=== PATIENT | female | born 1930 | race Caucasian/White ===

== ENCOUNTER 2018-09-29 13:52 | Emergency (ER) | payer OTHER, MEDICAID ==
[~2018-09-29] VITALS: Ht 160 cm; Wt 66.0 kg
[2018-09-29] MEDS ORDERED: ACETAMINOPHEN 650MG/20.3ML UDC PO ONE (16:45)
[2018-09-29] MEDS ORDERED: IBUPROFEN 400MG TABLET PO ONE (16:45)
[2018-09-29 17:45] VITALS: BP 130/72
== END 2018-09-29 17:55 | disposition home or self-care (01) ==
LOC: ER 13:52
DX: S70.02XA Contusion of left hip, initial encounter (principal); M25.572 Pain in left ankle and joints of left foot; M25.532 Pain in left wrist; E78.00 Pure hypercholesterolemia, unspecified; I10 Essential (primary) hypertension; Z90.49 Acquired absence of other specified parts of digestive tract; V03.99XA Pedestrian with other conveyance injured in collision with car, pick-up truck or van, unspecified whether traffic or nontraffic accident, initial encounter; Y93.01 Activity, walking, marching and hiking; Y92.481 Parking lot as the place of occurrence of the external cause; Y99.8 Other external cause status
CPT/HCPCS: 72170; 73030; 73110; 73610; 99283

== ENCOUNTER 2019-08-03 12:24 | Inpatient (IN) | payer OTHER, MEDICAID ==
[~2019-08-03] VITALS: Ht 144.8 cm; Wt 44.9 kg
[2019-08-03] MEDS ORDERED: ONDANSETRON HCL 4MG/2ML INJ IV STA (13:53)
[2019-08-03 14:17] LABS: BASOPHILS % 1.2 % (0.0-2.0); EOSINOPHILS % 1.8 % (0.0-5.0); HEMATOCRIT. 45.7 % (36.0-48.0); HEMOGLOBIN. 15.4 g/dL (12.0-16.0); LYMPHOCYTES % 27.4 % (20.0-50.0); MEAN CORPUSCULAR VOLUME 89.3 fL (81.0-99.0); MEAN PLATELET VOLUME 8.7 fl (7.4-10.4); MONOCYTES % 7.7 % (2.0-8.0); NEUTROPHILS % 61.9 % (40.0-76.0); PLATELET 145 x1000/uL (130-400); RED BLOOD CELL COUNT 5.12 mill/uL (4.2-5.4)
[2019-08-03 14:23] LABS: CHLORIDE 103 mEq/L (98-107)
[2019-08-03] MEDS ORDERED: SODIUM CHLORIDE 0.9% 1,000 ML IV ONE (14:25)
[2019-08-03 15:14] LABS: CREATINE KINASE MB FRACTION 1.1 ng/mL (0.5-3.6)
[2019-08-03 17:39] LABS: CLARITY URINE CLEAR (CLEAR); COLOR URINE YELLOW (YELLOW); KETONES URINE NEGATIVE (NEGATIVE); LEUKOCYTE ESTERASE URINE NEGATIVE (NEGATIVE); NITRITE URINE NEGATIVE (NEGATIVE); OCCULT BLOOD URINE NEGATIVE (NEGATIVE); PROTEIN URINE NEGATIVE (NEGATIVE); SPECIFIC GRAVITY URINE 1.003 (1.005-1.030); UROBILINOGEN URINE 0.2 E.U./dL (0.2-1.0)
[2019-08-04 10:00] VITALS: BP 113/61
[2019-08-04] MEDS ORDERED: CLONIDINE 0.1MG TABLET PO PRN (12:00)
[2019-08-04] MEDS ORDERED: MAGNESIUM/ALUMINUM HYDROXIDE/SIMETHICONE 30ML UDC PO PRN (12:00)
[2019-08-04] MEDS ORDERED: IPRATROPIUM/ALBUTEROL 0.5-3(2.5)MG/3ML NEB HHN PRN (12:00)
[2019-08-04] MEDS ORDERED: ONDANSETRON HCL 4MG/2ML INJ IV PRN (12:00)
[2019-08-04] MEDS ORDERED: ACETAMINOPHEN 325MG TABLET PO PRN (12:00)
[2019-08-04 13:39] LABS: EOSINOPHILS % 1.5 % (0.0-5.0); HEMATOCRIT. 41.2 % (36.0-48.0); LYMPHOCYTES % 38.7 % (20.0-50.0); MEAN CORPUSCULAR HEMOGLOBIN 30.2 pg (28.0-32.0); MEAN CORPUSCULAR VOLUME 88.8 fL (81.0-99.0); MONOCYTES % 7.4 % (2.0-8.0); NEUTROPHILS % 51.4 % (40.0-76.0); PLATELET 137 x1000/uL (130-400); RED BLOOD CELL COUNT 4.63 mill/uL (4.2-5.4)
[2019-08-04 13:46] LABS: CHLORIDE 108 mEq/L (98-107)
[2019-08-04 13:54] LABS: LDL CHOLESTEROL 54 mg/dL (5-100)
[2019-08-04 13:56] LABS: HDL CHOLESTEROL 52 mg/dL (40-59)
[2019-08-04 14:13] LABS: HEPATITIS B SURFACE ANTIGEN NEGATIVE
[2019-08-04 14:43] LABS: HEPATITIS A AB IGM NEGATIVE (NEGATIVE)
[2019-08-04 16:00] VITALS: BP 97/42
[2019-08-04] MEDS: ENOXAPARIN 30MG/0.3ML SYR SUBCUT SCH (16:04)
[2019-08-04] MEDS: SODIUM CHLORIDE 0.45% 1,000 ML IV SCH (16:35)
[2019-08-04 17:58] LABS: CREATINE KINASE MB FRACTION < 1.0 ng/mL (0.5-3.6)
[2019-08-04] MEDS ORDERED: INFLUENZA VIRUS VACCINE(AFLURIA) 0.5ML SYR IM ONE (19:15)
[2019-08-04] MEDS ORDERED: ATOR20TA65 PO (19:15)
[2019-08-04] MEDS ORDERED: PNEUMOCOCCAL 23-VAL P-SAC VAC 0.5 ML IM ONE (19:15)
[2019-08-04] MEDS ORDERED: OMEP20CA14 MT (19:19)
[2019-08-04 20:00] VITALS: BP 100/50
[2019-08-04] MEDS: IPRATROPIUM/ALBUTEROL 0.5-3(2.5)MG/3ML NEB HHN SCH (20:32)
[2019-08-05] VITALS: BP 113/55
[2019-08-05 01:08] LABS: CREATINE KINASE MB FRACTION < 1.0 ng/mL (0.5-3.6)
[2019-08-05] MEDS: SODIUM CHLORIDE 0.45% 1,000 ML IV SCH ×2 (03:02→08:00)
[2019-08-05 04:00] VITALS: BP 110/46
[2019-08-05] MEDS: IPRATROPIUM/ALBUTEROL 0.5-3(2.5)MG/3ML NEB HHN SCH (07:28)
[2019-08-05 08:00] VITALS: BP 123/54
[2019-08-05 08:11] LABS: BASOPHILS % 0.9 % (0.0-2.0); EOSINOPHILS % 2.8 % (0.0-5.0); HEMATOCRIT. 41.9 % (36.0-48.0); HEMOGLOBIN. 13.9 g/dL (12.0-16.0); LYMPHOCYTES % 37.4 % (20.0-50.0); MEAN CORPUSCULAR VOLUME 90.1 fL (81.0-99.0); MEAN PLATELET VOLUME 8.5 fl (7.4-10.4); MONOCYTES % 7.1 % (2.0-8.0); NEUTROPHILS % 51.8 % (40.0-76.0); PLATELET 120 x1000/uL (130-400); RED BLOOD CELL COUNT 4.65 mill/uL (4.2-5.4); RED CELL DISTRIBUTION WIDTH 14.2 % (11.6-14.6)
[2019-08-05 08:37] LABS: CHLORIDE 110 mEq/L (98-107)
[2019-08-05] MEDS: ENOXAPARIN 30MG/0.3ML SYR SUBCUT SCH (09:00)
[2019-08-05 12:00] VITALS: BP 113/54
[2019-08-05 15:05] VITALS: BP 113/54
== END 2019-08-05 15:40 | disposition home or self-care (01) | DRG 74 ==
LOC: ER 13:06 → EDBEDREQTM 23:06 → EDBEDREQ 23:06 → ENRESERV 08-04 08:59 → 7WST 08-04 09:50
PROVIDERS: ADMIT Internal Medicine Geriatric Medicine; ATTEND Internal Medicine Geriatric Medicine
DX: G90.8 Other disorders of autonomic nervous system (principal); B17.9 Acute viral hepatitis, unspecified; E78.00 Pure hypercholesterolemia, unspecified; E78.5 Hyperlipidemia, unspecified; I10 Essential (primary) hypertension; K52.9 Noninfective gastroenteritis and colitis, unspecified; M81.0 Age-related osteoporosis without current pathological fracture; M19.90 Unspecified osteoarthritis, unspecified site; I95.9 Hypotension, unspecified; R79.89 Other specified abnormal findings of blood chemistry; Z90.49 Acquired absence of other specified parts of digestive tract; J98.8 Other specified respiratory disorders
CPT/HCPCS: 36415; 71045; 76700; 80048; 80053; 80061; 80076; 81003; 82550; 82553; 82962; 83036; 83880; 84443; 84484; 85025; 86705; 86709; 86803; 87340; 87804; 93005; 93306; 94640; 99285; C1893; J1650; J2405; J7030